=== PATIENT | female | born 1990 | race Caucasian/White ===

== ENCOUNTER 2018-12-06 13:13 | Emergency (ER) | payer SELFPAY ==
[~2018-12-06] VITALS: Ht 165.1 cm; Wt 84.0 kg
[2018-12-06 14:37] VITALS: BP 146/80
== END 2018-12-06 14:38 | disposition home or self-care (01) ==
LOC: ER 13:13
DX: M54.6 Pain in thoracic spine (principal); Z91.013 Allergy to seafood
CPT/HCPCS: 99283